=== PATIENT | female | born 1980 | race Caucasian/White ===

== ENCOUNTER 2019-08-20 18:47 | Emergency (ER) | payer OTHER ==
[~2019-08-20] VITALS: Ht 167.6 cm; Wt 70.3 kg
[2019-08-20 18:52] VITALS: BP 135/102
--- NOTE | 2019-08-20 18:57 | NUR ---
WAIT AT LOBBY
--- NOTE | 2019-08-20 19:45 | NUR ---
PT CALLED FROM [facility]. NO RESPONSE.
--- NOTE | 2019-08-20 20:00 | NUR ---
CALLED FROM [facility]. NO RESPONSE.
--- NOTE | 2019-08-20 20:15 | NUR ---
CALLED FROM [facility]. NO RESPONSE. PT LWBS.
== END 2019-08-20 19:45 | disposition left against medical advice (07) ==
LOC: MED 18:47
DX: S61.411A Laceration without foreign body of right hand, initial encounter (principal); Z53.21 Procedure and treatment not carried out due to patient leaving prior to being seen by health care provider; W25.XXXA Contact with sharp glass, initial encounter; Y93.89 Activity, other specified; Y92.89 Other specified places as the place of occurrence of the external cause; Y99.8 Other external cause status
CPT/HCPCS: 73130; 99281